=== PATIENT | female | born 1940 | race Caucasian/White ===

== ENCOUNTER → 2019-12-09 | Outpatient (CLI) | payer OTHER, MEDICARE | LOC: SJCVC 14:00 | DX: I21.29 ST elevation (STEMI) myocardial infarction involving other sites (principal); R94.31 Abnormal electrocardiogram [ECG] [EKG]; I10 Essential (primary) hypertension; M81.0 Age-related osteoporosis without current pathological fracture; E78.00 Pure hypercholesterolemia, unspecified; Z79.899 Other long term (current) drug therapy ==

== ENCOUNTER → 2019-12-12 | Outpatient (CLI) | payer OTHER, MEDICARE | LOC: SJCVCIMAG 07:41 | DX: I08.3 Combined rheumatic disorders of mitral, aortic and tricuspid valves (principal); I11.9 Hypertensive heart disease without heart failure ==

== ENCOUNTER → 2020-01-02 | Outpatient (CLI) | payer OTHER, MEDICARE | END | disposition home or self-care (01) | LOC: SJCVCIMAG 12:47 | DX: R06.09 Other forms of dyspnea (principal); I10 Essential (primary) hypertension; R94.31 Abnormal electrocardiogram [ECG] [EKG]; J30.2 Other seasonal allergic rhinitis ==